=== PATIENT | male | born 1990 | race Caucasian/White ===

== ENCOUNTER 2016-12-01 21:45 | Emergency (ER) | payer OTHER ==
[~2016-12-01] VITALS: Ht 180.3 cm; Wt 121.0 kg
[~2016-12-01 21:45] MED LIST: NAPR-576 PO
[2016-12-01 21:48] VITALS: BP 125/67; PULSE 76; RESP 16; TEMP 98.3; O2SAT 97
[2016-12-01] MEDS ORDERED: BACT800T5 PO (22:22)
--- NOTE | 2016-12-01 22:22 | PD ---
HPI Chief Complaint: Skin Problem Time Seen by Provider: 22:19 Travel History International Travel<30 days: No Contact w/Intl Traveler<30days: No Traveled to known affect area: No History of Present Illness HPI 26-year-old male presents to the emergency room for evaluation of an abscess to his right lateral thigh that has been present for 4 days. Patient states started off as little heat bump and then got infected. He squeezed and got a small amount of white discharge. States it seems to improve but he was concerned because it hasn't gone away yet. Denies fever, chills, nausea, and vomiting. No chronic medical conditions or daily medications. PFSH Past Medical History Medical History: Denies Significant Hx Diminished Hearing: No Immunizations Current: Yes Tetanus Vaccination: < 5 Years Influenza Vaccination: Yes Past Surgical History Surgical History: No Previous Surgery Social History Alcohol Use: No Tobacco Use: No Substance Use: No Allergies-Medications (Allergen,Severity, Reaction): Coded Allergies: No Known Allergies (Verified , 12/01/16) Reported Meds & Prescriptions Reported Meds & Active Scripts Active No Active Prescriptions or Reported Medications Review of Systems Except as stated in HPI: all other systems reviewed are Neg Physical Exam Narrative GENERAL: Well-nourished, well-developed male in no acute distress. Afebrile. Ambulatory. SKIN: Focused skin assessment warm/dry. There is an indurated area in the right lateral thigh which measures about 3 cm in diameter. It is fluctuant but there is no pointing or drainage. There is a zone of inflammation around it but no lymphangitis. HEAD: Normocephalic. EYES: No scleral icterus. No injection or drainage. NECK: Supple, trachea midline. No JVD or lymphadenopathy. CARDIOVASCULAR: Regular rate and rhythm without murmurs, gallops, or rubs. RESPIRATORY: Breath sounds equal bilaterally. No accessory muscle use. PSYCHIATRIC: No delusional thought processes. No hallucinations. Data Data Last Documented VS Vital Signs Date Time Temp Pulse Resp B/P Pulse Ox O2 Delivery O2 Flow Rate FiO2 12/01/16 21:48 98.3 76 16 125/67 97 Orders Lidocaine Pf 1% Inj (Xylocaine-Mpf 1% In (12/01/16 22:30) MDM Medical Decision Making Medical Screen Exam Complete: Yes Emergency Medical Condition: Yes Medical Record Reviewed: Yes Differential Diagnosis Abscess, folliculitis, cellulitis Narrative Course 26-year-old male presents to the emergency room for evaluation of an abscess to his right lateral thigh that has been present for 4 days. Vital signs stable. Physical exam is reassuring. There is a 3 cm area of induration without any surrounding erythema. There is pointing but no spontaneous drainage. Abscess was incised, see procedure note for details. Patient discharged with Bactrim and told to follow up with a PCP or return for worsening symptoms. He understands and agrees to plan. Procedures Procedure Narrative INCISION AND DRAINAGE OF ABSCESS: The area was prepped and was sterilely draped. A subcutaneous wheal of 1% lidocaine with a total number 3 mL was used to anesthetize the area properly. A number 11 scalpel was used to make a 0.5 cm incision across the area of the abscess. The abscess was drained, complex loculations were broken down, and irrigated with normal saline. Sterile dressing applied. Diagnosis Primary Impression: Abscess Referrals: Primary Care Physician Patient Instructions: Abscess (ED), General Instructions Additional Instructions: Rest and drink plenty of fluids. Take Bactrim as directed, until gone. Follow up with a primary care physician. Return to emergency room for worsening symptoms, as discussed. Scripts No Active Prescriptions or Reported Meds Disposition: 01 DISCHARGE HOME Condition: Stable Verenice Gipson Dec 01, 2016 22:22
[2016-12-01] MEDS ORDERED: LIDOCAINE HCL 1% PF 30 ML VIAL INFIL ONE (22:30)
== END 2016-12-01 22:59 | disposition home or self-care (01) ==
LOC: PHEFT 21:45
DX: L02.415 Cutaneous abscess of right lower limb (principal)
CPT/HCPCS: 10060

== ENCOUNTER 2017-02-28 18:31 | Emergency (ER) | payer OTHER ==
[~2017-02-28] VITALS: Ht 177.8 cm; Wt 123.3 kg
[~2017-02-28 18:31] MED LIST changes: +BACT800T5 PO; -NAPR-576 PO
[2017-02-28 18:33] VITALS: BP 142/82; PULSE 102; RESP 16; TEMP 98.3; O2SAT 96
--- NOTE | 2017-02-28 19:11 | PD ---
HPI Chief Complaint: Pain: Acute or Chronic Time Seen by Provider: 18:52 Travel History International Travel<30 days: No Contact w/Intl Traveler<30days: No Traveled to known affect area: No History of Present Illness HPI 26-year-old male presents to the emergency department for evaluation of his right knee after popping a lesion on the anterior portion of his patella. States that over the last 3 days he has had increased swelling, pain, edema, and "pressure" in his right knee. States he is able to walk normally. He says that over the last day, he has developed a streak leading proximal to patella with tenderness. The lesion has no discharge or worsening. Patient denies fever , chills chest pain, back pain, abdominal pain, illicit drug use to include IV drug use. PFSH Past Medical History Medical History: Denies Significant Hx Hx Anticoagulant Therapy: No Diabetes: No Diminished Hearing: No Immunizations Current: Yes Tetanus Vaccination: < 5 Years Influenza Vaccination: Yes Past Surgical History Surgical History: No Previous Surgery Social History Alcohol Use: No Tobacco Use: No Substance Use: No Allergies-Medications (Allergen,Severity, Reaction): Coded Allergies: No Known Allergies (Verified , 02/28/17) Reported Meds & Prescriptions Reported Meds & Active Scripts Active Clindamycin (Clindamycin HCl) 300 Mg Cap 300 Mg PO Q6H 10 Days Review of Systems Except as stated in HPI: all other systems reviewed are Neg Physical Exam Narrative GENERAL: Well-developed well-nourished, obese SKIN: Focused skin assessment warm/dry. HEAD: Atraumatic. Normocephalic. EYES: Pupils equal and round. No scleral icterus. No injection or drainage. ENT: No nasal bleeding or discharge. Mucous membranes pink and moist. NECK: Trachea midline. No JVD. CARDIOVASCULAR: Regular rate and rhythm. No murmur appreciated. RESPIRATORY: No accessory muscle use. Clear to auscultation. Breath sounds equal bilaterally. MUSCULOSKELETAL: No obvious deformities. No clubbing. No cyanosis. No edema. Left knee: Erythema and edema over entire patella with central puncta, consistent with what pt describes as a cyst. No exudate or drainage. 7cm lymphangiopathic spread proximal to knee with TTP. NEUROLOGICAL: Awake and alert. No obvious cranial nerve deficits. Motor grossly within normal limits. Normal speech. PSYCHIATRIC: Appropriate mood and affect; insight and judgment normal. Data Data Last Documented VS Vital Signs Date Time Temp Pulse Resp B/P (MAP) Pulse Ox O2 Delivery O2 Flow Rate FiO2 02/28/17 19:26 87 16 121/80 (94) 97 Room Air 02/28/17 18:33 98.3 Orders Orders Complete Blood Count With Diff (02/28/17 19:01) Basic Metabolic Panel (Bmp) (02/28/17 19:01) Westergren Sedimentation Rate (02/28/17 19:01) C-Reactive Protein (Crp) (02/28/17 19:01) Clindamycin (Cleocin) (02/28/17 19:30) Ed Discharge Order (02/28/17 20:01) Wound Care (02/28/17 20:05) Labs Laboratory Tests Test 02/28/17 19:00 White Blood Count 12.5 TH/MM3 Red Blood Count 5.43 MIL/MM3 Hemoglobin 15.6 GM/DL Hematocrit 47.4 % Mean Corpuscular Volume 87.3 FL Mean Corpuscular Hemoglobin 28.7 PG Mean Corpuscular Hemoglobin Concent 32.8 % Red Cell Distribution Width 12.6 % Platelet Count 186 TH/MM3 Mean Platelet Volume 7.9 FL Neutrophils (%) (Auto) 64.9 % Lymphocytes (%) (Auto) 23.6 % Monocytes (%) (Auto) 6.3 % Eosinophils (%) (Auto) 2.0 % Basophils (%) (Auto) 3.2 % Neutrophils # (Auto) 8.2 TH/MM3 Lymphocytes # (Auto) 2.9 TH/MM3 Monocytes # (Auto) 0.8 TH/MM3 Eosinophils # (Auto) 0.2 TH/MM3 Basophils # (Auto) 0.4 TH/MM3 CBC Comment DIFF FINAL Differential Comment Erythrocyte Sedimentation Rate 3 mm/hr Blood Urea Nitrogen 18 MG/DL Creatinine 0.83 MG/DL Random Glucose 89 MG/DL Calcium Level 8.9 MG/DL Sodium Level 138 MEQ/L Potassium Level 4.0 MEQ/L Chloride Level 104 MEQ/L Carbon Dioxide Level 27.3 MEQ/L Anion Gap 7 MEQ/L Estimat Glomerular Filtration Rate 110 ML/MIN MDM Medical Decision Making Medical Screen Exam Complete: Yes Emergency Medical Condition: Yes Differential Diagnosis Right knee Cellulitis versus erysipelas versus septic joint Narrative Course 26-year-old nontoxic appearing male presents to the emergency department for right knee pain after popping a cyst on his knee. States over the last 3 days, he's developed increased erythema and edema with associated pain over the right knee. He is able to walk and bend his knee but this does increase the pain. Denies fever, chills, chest pain, shortness of breath, back pain, drainage. I performed a POC Ultrasound of the knee did not reveal any obvious abscess or excessive fluid to drain or culture. Physical exam demonstrated knee pain over patella with lymphangitic Spread leading proximal from patella. Labs- WBCs 12.5, ESR 3, CRP pending as of discharge Vital signs stable. I consulted with my attending for second opinion. Patient will be discharged on clindamycin. Strongly advised patient to return to ED if he develops signs of increased infection or pain. Patient follow up with his primary care physician within 2 days. Diagnosis Primary Impression: Cellulitis Qualified Codes: L03.818 - Cellulitis of other sites Referrals: Primary Care Physician Additional Instructions: Monitor for increased infection of the area. If area becomes larger, more tender , return to the emergency department. Take ALL antibiotics as prescribed. May use warm compresses, keep knee elevated. Scripts Clindamycin (Clindamycin) 300 Mg Cap 300 MG PO Q6H for Infection for 10 Days, #40 CAP 0 Refills Prov: Kunal Buchanan MD 02/28/17 Disposition: 01 DISCHARGE HOME Condition: Stable Miriam Peralta Feb 28, 2017 19:11
[2017-02-28 19:15] LABS: AUTOMATED NEUTROPHIL # 8.2 TH/MM3 (1.8-7.7); BASOPHIL # 0.4 TH/MM3 (0-0.2); BASOPHIL % 3.2 % (0.0-2.0); EOSINOPHIL # 0.2 TH/MM3 (0-0.4); HEMATOCRIT 47.4 % (39.0-51.0); HEMO FLAGS DIFF FINAL; LYMPH % 23.6 % (9.0-44.0); LYMPHOCYTE # 2.9 TH/MM3 (1.0-4.8); MEAN CELL VOLUME 87.3 FL (80.0-100.0); MEAN CORPUSCULAR HEMOGLOBIN 28.7 PG (27.0-34.0); MEAN CORPUSCULAR HGB CONC 32.8 % (32.0-36.0); MONO % 6.3 % (0.0-8.0); NEUT % 64.9 % (16.0-70.0); PLATELET COUNT 186 TH/MM3 (150-450); RED BLOOD COUNT 5.43 MIL/MM3 (4.50-5.90); RED CELL DISTRIBUTION WIDTH 12.6 % (11.6-17.2); WHITE BLOOD COUNT 12.5 TH/MM3 (4.0-11.0)
[2017-02-28 19:25] LABS: BICARBONATE 27.3 MEQ/L (21.0-32.0)
[2017-02-28 19:26] VITALS: BP 121/80; PULSE 87; RESP 16; O2SAT 97
[2017-02-28] MEDS ORDERED: CLINDAMYCIN 150 MG CAP PO ONE (19:30)
[2017-02-28] MEDS ORDERED: CLIN1CAP6 PO (20:01)
--- NOTE | 2017-02-28 20:08 | PD ---
Data Data Last Documented VS Vital Signs Date Time Temp Pulse Resp B/P (MAP) Pulse Ox O2 Delivery O2 Flow Rate FiO2 02/28/17 19:26 87 16 121/80 (94) 97 Room Air 02/28/17 18:33 98.3 Orders Orders Complete Blood Count With Diff (02/28/17 19:01) Basic Metabolic Panel (Bmp) (02/28/17 19:01) Westergren Sedimentation Rate (02/28/17 19:01) C-Reactive Protein (Crp) (02/28/17 19:01) Clindamycin (Cleocin) (02/28/17 19:30) Ed Discharge Order (02/28/17 20:01) Wound Care (02/28/17 20:05) Labs Laboratory Tests Test 02/28/17 19:00 White Blood Count 12.5 TH/MM3 Red Blood Count 5.43 MIL/MM3 Hemoglobin 15.6 GM/DL Hematocrit 47.4 % Mean Corpuscular Volume 87.3 FL Mean Corpuscular Hemoglobin 28.7 PG Mean Corpuscular Hemoglobin Concent 32.8 % Red Cell Distribution Width 12.6 % Platelet Count 186 TH/MM3 Mean Platelet Volume 7.9 FL Neutrophils (%) (Auto) 64.9 % Lymphocytes (%) (Auto) 23.6 % Monocytes (%) (Auto) 6.3 % Eosinophils (%) (Auto) 2.0 % Basophils (%) (Auto) 3.2 % Neutrophils # (Auto) 8.2 TH/MM3 Lymphocytes # (Auto) 2.9 TH/MM3 Monocytes # (Auto) 0.8 TH/MM3 Eosinophils # (Auto) 0.2 TH/MM3 Basophils # (Auto) 0.4 TH/MM3 CBC Comment DIFF FINAL Differential Comment Erythrocyte Sedimentation Rate 3 mm/hr Blood Urea Nitrogen 18 MG/DL Creatinine 0.83 MG/DL Random Glucose 89 MG/DL Calcium Level 8.9 MG/DL Sodium Level 138 MEQ/L Potassium Level 4.0 MEQ/L Chloride Level 104 MEQ/L Carbon Dioxide Level 27.3 MEQ/L Anion Gap 7 MEQ/L Estimat Glomerular Filtration Rate 110 ML/MIN [facility] Medical Record Reviewed: Yes Supervised Visit with ELVIA: Yes Narrative Course I, Dr. Buchanan, have reviewed the advance practice practitioner's documentation and am in agreement, met with the patient face to face, made the diagnosis, and the medical decision making was done by me. *My assessment and Findings: No septic arthritis. Clinda for cellulitis with trace lymphangitis Return precautions discussed. Pt has capacity. Diagnosis Primary Impression: Cellulitis Qualified Codes: L03.818 - Cellulitis of other sites Referrals: Primary Care Physician Additional Instruction: Monitor for increased infection of the area. If area becomes larger, more tender , return to the emergency department. Take ALL antibiotics as prescribed. May use warm compresses, keep knee elevated. Scripts Clindamycin (Clindamycin) 300 Mg Cap 300 MG PO Q6H for Infection for 10 Days, #40 CAP 0 Refills Prov: Kunal Buchanan MD 02/28/17 Disposition: 01 DISCHARGE HOME Condition: Stable Kunal Buchanan MD Feb 28, 2017 20:08
== END 2017-02-28 20:16 | disposition home or self-care (01) ==
LOC: PHEFT 18:31
DX: L03.818 Cellulitis of other sites (principal)
CPT/HCPCS: 80048; 85025; 85652; 86140; 99284